=== PATIENT | female | born 1995 | race Caucasian/White ===

== ENCOUNTER 2020-12-20 11:26 | Emergency (ER) | payer OTHER ==
[~2020-12-20] VITALS: Ht 154.9 cm; Wt 54.4 kg
[2020-12-20] MEDS ORDERED: PEPCID AC20 MG (11:57)
[2020-12-20] MEDS ORDERED: FLAGYL500MG (11:57)
== END 2020-12-20 20:12 | disposition home or self-care (01) ==
LOC: ER 11:26
DX: K29.70 Gastritis, unspecified, without bleeding (principal); Z03.818 Encounter for observation for suspected exposure to other biological agents ruled out

== ENCOUNTER 2021-01-24 14:06 | Emergency (ER) | payer OTHER ==
[~2021-01-24] VITALS: Ht 154.9 cm; Wt 54.4 kg
[~2021-01-24 14:06] MED LIST: FLAGYL500MG; PEPCID AC20 MG
== END 2021-01-24 18:57 | disposition home or self-care (01) ==
LOC: ER 14:06
DX: K29.70 Gastritis, unspecified, without bleeding (principal)